=== PATIENT | female | born 1985 | race Caucasian/White ===

== ENCOUNTER → 2017-05-26 | Outpatient (CLI) | payer OTHER ==
[~2017-05-26] MED LIST: CIPROFLOXACIN500 MG PO; VICODIN ES 7501 TAB PO
[2017-05-26 13:25] LABS: URINE AMPHETAMINES < 1000 (1000ng/ml); URINE BARBITURATES < 200 (200ng/ml); URINE BENZODIAZEPINES < 200 (200ng/ml); URINE CANNABINOIDS (THC) > 50 (50ng/ml); URINE COCAINE < 300 (300ng/ml); URINE METHADONE < 300 (300ng/ml); URINE OPIATES < 300 (300ng/ml); URINE PHENCYCLIDINE < 25 (25ng/ml)
== END | disposition home or self-care (01) ==
LOC: LAB 13:02
PROVIDERS: Internal Medicine
DX: F11.20 Opioid dependence, uncomplicated (principal)

== ENCOUNTER → 2018-02-01 | Outpatient (CLI) | payer OTHER ==
[2018-02-01 10:21] LABS: URINE AMPHETAMINES < 1000 (1000ng/ml); URINE BARBITURATES < 200 (200ng/ml); URINE BENZODIAZEPINES < 200 (200ng/ml); URINE CANNABINOIDS (THC) > 50 (50ng/ml); URINE COCAINE < 300 (300ng/ml); URINE METHADONE < 300 (300ng/ml); URINE OPIATES < 300 (300ng/ml)
[2018-02-01 10:23] LABS: URINE PHENCYCLIDINE < 25 (25ng/ml)
== END | disposition home or self-care (01) ==
LOC: LAB 09:49
PROVIDERS: Internal Medicine
DX: F11.20 Opioid dependence, uncomplicated (principal)

== ENCOUNTER 2018-05-26 09:00 | Emergency (ER) | payer OTHER ==
[~2018-05-26] VITALS: Ht 154.9 cm; Wt 56.2 kg
--- NOTE | ~2018-05-26 | EKG ---
[place], [place] ELECTROCARDIOGRAM REPORT NAME: EDWIGE FERNANDES UNIT #: [id number] ROOM: DOCTOR: EPIPHANY DRAFT REPORT BIRTHDATE: [birth year] [facility] Test Date: 2018-05-26 Test Time: 09:30:12 Pat Name: EDWIGE FERNANDES Department: Room: Gender: F Internet Marketing Coordinator: : 1985 Requested By: AMNA HIGH Order Number: [id number] Reading MD: Mason Lopez MD Measurements Intervals [place] Rate: 68 P: 35 IN: 163 QRS: 42 QRSD: 96 T: 33 QT: 406 QTc: 432 Interpretive Statements Sinus rhythm No previous ECG available for comparison Electronically Signed On 05-26-2018 16:17:45 PST by Mason Lopez MD CM:EKGRPT:ELECTROCARDIOGRAM REPORT 0930 [id number] AMNA HIGH EPIPHANY DRAFT REPORT AMNA HIGH
[2018-05-26 09:31] LABS: BILIRUBIN NEGATIVE (NEGATIVE); BLOOD 3+ (NEGATIVE); CLARITY TURBID (CLEAR); COLOR RED (YELLOW); GLUCOSE NEGATIVE (NEGATIVE); KETONE TRACE (NEGATIVE); NITRITE POSITIVE (NEGATIVE); SPECIFIC GRAVITY >= 1.030 (1.005-1.030)
[2018-05-26 09:32] LABS: BASO % 0.5 % (0.0-1.0); EOS # 0.1 10*3/uL (0.0-0.4); EOS % 1.3 % (1.0-4.0); HEMATOCRIT 41.7 % (37.0-47.0); HEMOGLOBIN 13.9 g/dl (12.0-16.0); LYMPH # 1.6 10*3/uL (1.3-4.4); LYMPH % 25.7 % (27.0-41.0); MEAN CELL VOLUME 89.1 fl (81.0-99.0); MEAN CORPUSCULAR HGB 29.7 pg (27.0-31.0); MEAN CORPUSCULAR HGB CONC 33.3 g/dl (33.0-37.0); MEAN PLATELET VOLUME 10.4 fl (9.6-12.3); MONO # 0.3 10*3/uL (0.1-1.0); MONO % 4.6 % (3.0-9.0); NEUT # 4.3 10*3/uL (2.3-7.9); NEUT % 67.7 % (47.0-73.0); PLATELET COUNT AUTOMATED 192 10*3/uL (130-400); RED BLOOD COUNT 4.68 10*6/uL (4.10-5.10); RED CELL DISTRI WIDTH 12.5 % (0-14.5); WHITE BLOOD COUNT 6.3 10*3/uL (4.8-10.8)
[2018-05-26 09:39] LABS: LEUKO ESTERASE TRACE (NEGATIVE)
[2018-05-26 09:41] LABS: RBC TNTC rbc/hpf (0-2)
[2018-05-26 09:43] LABS: BACTERIA 2+; WBC 31-40 wbc/hpf (0-5)
[2018-05-26 09:54] LABS: ALBUMIN 4.1 gm/dl (3.1-4.5); ALKALINE PHOSPHATASE 57 U/L (45-117); BUN 10 mg/dl (7-24); CHLORIDE 105 mmol/L (98-107); CREATININE 0.75 mg/dL (0.55-1.02); LIPASE 97 U/L (73-393); POTASSIUM 3.7 mmol/L (3.5-5.1); SGOT/AST 21 IU/L (3-35); SGPT/ALT 21 U/L (12-78); SODIUM 138 mmol/L (136-145); TOTAL PROTEIN 7.7 gm/dL (6.4-8.2)
[2018-05-26 10:03] LABS: TROPONIN I < 0.015 ng/ml (<0.045)
[2018-05-26] MEDS ORDERED: PYRIDIUM200 M1 PO (11:17)
[2018-05-26] MEDS ORDERED: ZOFRAN4 MG PO (11:17)
[2018-05-26] MEDS ORDERED: SEPTDS PO (11:17)
== END 2018-05-26 11:49 | disposition home or self-care (01) ==
LOC: ED 09:00
PROVIDERS: Nurse Practitioner Family
DX: N39.0 Urinary tract infection, site not specified (principal); R55 Syncope and collapse; R03.0 Elevated blood-pressure reading, without diagnosis of hypertension; R42 Dizziness and giddiness

== ENCOUNTER → 2018-09-28 | Outpatient (CLI) | payer OTHER ==
[~2018-09-28] MED LIST changes: +PYRIDIUM200 M1 PO; +SEPTDS PO; +ZOFRAN4 MG PO
== END | disposition home or self-care (01) ==
LOC: LAB 09:37
DX: F11.20 Opioid dependence, uncomplicated (principal)

== ENCOUNTER → 2019-05-01 | Outpatient (CLI) | payer OTHER ==
[2019-05-01 11:40] LABS: URINE AMPHETAMINES < 1000 (1000ng/ml); URINE BARBITURATES < 200 (200ng/ml); URINE BENZODIAZEPINES < 200 (200ng/ml); URINE CANNABINOIDS (THC) > 50 (50ng/ml); URINE COCAINE < 300 (300ng/ml); URINE METHADONE < 300 (300ng/ml); URINE OPIATES < 300 (300ng/ml)
[2019-05-01 11:50] LABS: URINE PHENCYCLIDINE < 25 (25ng/ml)
== END | disposition home or self-care (01) ==
LOC: LAB 10:52
PROVIDERS: Internal Medicine
DX: F11.20 Opioid dependence, uncomplicated (principal)